=== PATIENT | female | born 1965 | race Two or more races ===

== ENCOUNTER 2022-06-11 01:05 | Emergency (ER) | payer OTHER ==
[~2022-06-11] VITALS: Ht 152.4 cm; Wt 72.6 kg
[2022-06-11] MEDS ORDERED: IV NS 0.9% 1,000 ML BAG IV ONE (02:00)
--- NOTE | 2022-06-11 02:00 | NUR ---
TO ER BED 13. BIBFAMILY C/O LEFT SIDE KIDNEY PAIN AND FEVER . PT IS ALERT AND ORIENTED. RR EVEN AND NON LABORED. AMBULATORY WITH STEADY GAIT. PT ON BACTRIM X 2 DAYS. CONNECTED TO MONITOR. AWAITING MD FAITH
--- NOTE | 2022-06-11 02:22 | NUR ---
URINE COLLECTED AND SENT TO LAB
--- NOTE | 2022-06-11 02:48 | NUR ---
BLOOD COLLECTED AND SENT TO LAB
--- NOTE | 2022-06-11 02:48 | NUR ---
IV LINE ESTABLISHED, [id number]
[2022-06-11 03:02] LABS: BASOPHILS # (AUTO) 0.1 K/uL (0.0-0.2); BASOPHILS % (AUTO) 0.7 % (0.0-2.0); EOSINOPHILS % (AUTO) 0.3 % (0.0-6.0); HEMATOCRIT 35 % (33-45); HEMOGLOBIN 11.3 g/dL (11.5-14.8); LYMPHOCYTES # (AUTO) 1.8 K/uL (0.8-4.8); LYMPHOCYTES % (AUTO) 16.4 % (20.0-44.0); MEAN CORPUSCULAR HGB CONC 33 g/dl (31.0-36.0); MEAN CORPUSCULAR VOLUME 93 fL (82-100); MONOCYTES # (AUTO) 1.3 K/uL (0.1-1.30); MONOCYTES % (AUTO) 11.4 % (2.0-12.0); NEUTROPHILS % (AUTO) 71.2 % (43.0-81.0); PLATELET COUNT (AUTO) 239 K/uL (150-450); RED BLOOD CELL COUNT(AUTO) 3.71 MIL/uL (4.0-5.2); WHITE BLOOD COUNT (AUTO) 11.2 K/uL (4.3-11.0)
[2022-06-11 03:10] LABS: BILIRUBIN,URINE NEGATIVE (NEGATIVE); COLOR,URINE YELLOW (YELLOW); LEUKOCYTE ESTERASE ,URINE SMALL (NEGATIVE); NITRITE, URINE POSITIVE (NEGATIVE); PROTEIN,URINE TRACE mg/dl (NEGATIVE); UGLUCOSE 100 MG/DL mg/dL (NEGATIVE)
[2022-06-11 03:13] LABS: BACTERIA,URINE Few /HPF (None Seen); SQUAMOUS EPITHELIAL CELL,UR Few /HPF (None Seen); WBC,URINE 0-2 /HPF (0-3)
[2022-06-11 03:20] LABS: CALCIUM, SERUM 8.3 mg/dL (8.5-10.1); CREATININE 0.8 mg/dL (0.6-1.3); POTASSIUM 3.8 mmol/L (3.5-5.1)
[2022-06-11 03:26] LABS: ALBUMIN 3.2 g/dL (3.4-5.0); BILIRUBIN,DIRECT 0.1 mg/dL (0.0-0.2); BILIRUBIN,TOTAL 0.3 mg/dL (0.2-1.0); TOTAL PROTEIN, SERUM 8.1 g/dL (6.4-8.2)
[2022-06-11] MEDS ORDERED: IBUPROFEN 600 MG TABLET ONE (05:56)
[2022-06-11] MEDS ORDERED: HYDROCODONE/APAP 5/325MG TABLET ONE (05:56)
[2022-06-11] MEDS ORDERED: HYDROCODONE/APAP 5/325MG TABLET PO ONE (06:00)
[2022-06-11] MEDS ORDERED: IBUPROFEN 600 MG TABLET PO ONE (06:00)
[2022-06-11] MEDS ORDERED: CEPH500T PO (06:25)
[2022-06-11] MEDS ORDERED: TRAM50TA2 PO (06:25)
[2022-06-11] MEDS ORDERED: IBUP-1955 PO (06:25)
[2022-06-11] MEDS ORDERED: CEPHALEXIN MONOHYDRATE 500 MG CAPSULE PO ONE ×2 (06:28→06:30)
--- NOTE | 2022-06-11 06:43 | NUR ---
Patient discharged to home in stable condition. Written and verbal after care instructions given. Patient verbalizes understanding of instruction.
--- NOTE | 2022-06-11 06:43 | NUR ---
IV removed. Catheter intact and site benign. Pressure and 4x4 applied to site. No bleeding noted.
[2022-06-11 06:47] VITALS: BP 146/76
== END 2022-06-11 06:48 | disposition home or self-care (01) ==
LOC: ER 01:10
DX: R10.9 Unspecified abdominal pain (principal); N39.0 Urinary tract infection, site not specified; N85.2 Hypertrophy of uterus; N83.202 Unspecified ovarian cyst, left side; I10 Essential (primary) hypertension
CPT/HCPCS: 99284; 74176; 96360; 76770; 85025; 80048; 87040; 87086; 83605; 83690; 80076; 81001; 36415; J7030